=== PATIENT | male | born 1990 | race Caucasian/White ===

== ENCOUNTER 2020-05-23 11:26 | Emergency (ER) | payer MEDICAID ==
[~2020-05-23] VITALS: Ht 188 cm; Wt 129.7 kg
[2020-05-23 11:35] VITALS: BP_SYST 144
--- NOTE | 2020-05-23 11:35 | NUR ---
Placed in room 3 . Placed on radiographer cardiac catheterization, blood pressure machine and pulse oximeter. To gown for exam. Side rails up.
--- NOTE | 2020-05-23 11:36 | NUR ---
pt arrives from an UC w/ chest wall pain x 3 days. Pain is 6/10, sharp, intermittent, and radiating to the left shoulder. Pain is worse upon inspiration. EKG was done at the , was sent to our ER for further workup.
--- NOTE | 2020-05-23 11:38 | NUR ---
EKG done and given to
--- NOTE | 2020-05-23 11:41 | NUR ---
ER at bedside examining patient.
[2020-05-23] MEDS ORDERED: KETOROLAC TROMETHAMINE 30 MG VIAL IM ONE (12:15)
--- NOTE | 2020-05-23 12:45 | NUR ---
pt getting labs drawn at the bedside
[2020-05-23 13:14] LABS: ANION GAP 6 (5-15); CALCIUM 8.5 mg/dL (8.4-11.0); CHLORIDE 105 mmol/L (98-107); CREATININE 1.06 mg/dL (0.55-1.30); GLUCOSE 95 mg/dL (70-99); SODIUM SERUM 141 mmol/L (136-145); UREA NITROGEN, BLOOD 16 mg/dL (8-21)
[2020-05-23 13:15] LABS: HEMOGLOBIN 15.7 g/dL (14.0-18.0); MEAN CORPUSCULAR HEMOGLOBIN 31 pg (27-31); MEAN CORPUSCULAR HGB CONC 35 % (32-36); RED BLOOD CELL COUNT(AUTO) 5.08 MIL/uL (4.2-6.2)
--- NOTE | 2020-05-23 13:18 | NUR ---
care endorsed to Shan CHING. Pt is in stable condition
[2020-05-23 13:20] LABS: GFR AFRICAN AMERICAN 104 mL/min (>90)
[2020-05-23 13:22] LABS: BASOPHILS # (AUTO) 0.1 K/uL (0.0-0.2); BASOPHILS % (AUTO) 1.3 % (0.0-2.0); EOSINOPHILS # (AUTO) 0.4 K/uL (0.0-0.4); EOSINOPHILS % (AUTO) 5.4 % (0.0-4.0); LYMPHOCYTES # (AUTO) 2.6 K/uL (1.0-5.5); LYMPHOCYTES % (AUTO) 36.3 % (20.5-51.5); MEAN CORPUSCULAR VOLUME 89 fL (79.0-98.0); MONOCYTES # (AUTO) 0.4 K/uL (0.0-1.0); MONOCYTES % (AUTO) 5.3 % (1.7-9.3); NEUTROPHILS # (AUTO) 3.7 K/uL (1.8-7.7); NEUTROPHILS % (AUTO) 51.7 % (40.0-70.0); PLATELET COUNT (AUTO) 227 K/uL (130-430); WHITE BLOOD COUNT (AUTO) 7.1 K/uL (4.8-10.8)
[2020-05-23 13:23] LABS: ALANINE AMINOTRANSFERASE 38 U/L (12-78); ALBUMIN 3.9 g/dL (3.4-4.8); ASPARTATE AMINOTRANSFERASE 18 U/L (10-37); TOTAL BILIRUBIN 1.2 mg/dL (0.0-1.0)
--- NOTE | 2020-05-23 14:14 | NUR ---
Patient given written and verbal discharge instructions and verbalizes understanding. ER MD discussed with patient the results and treatment provided. Patient in stable condition. ID arm band removed. Rx of Naprosyn and Valiun given. Patient educated on pain management and to follow up with PMD. Pain Scale 2/10. Opportunity for questions provided and answered. Medication side effect fact sheet provided.
[2020-05-23 14:15] VITALS: BP_SYST 100
== END 2020-05-23 14:14 | disposition home or self-care (01) ==
LOC: SED 11:26
DX: R07.89 Other chest pain (principal); I10 Essential (primary) hypertension; Z90.49 Acquired absence of other specified parts of digestive tract
CPT/HCPCS: 36415; 71045; 80053; 84484; 85025; 85379; 93005; 96372; 99285; J1885